=== PATIENT | male | born 1980 | race Caucasian/White ===

== ENCOUNTER 2016-11-06 15:11 | Inpatient (IN) ==
[2016-11-06] MEDS ORDERED: ZOSYN 4.5 GM in NS 100 ML IV ONE (16:42)
[2016-11-06] MEDS ORDERED: VANCOMYCIN 1 GM/NS 1 GM/250 ML IVPB IV ONE ×2 (16:42→19:00)
[2016-11-06 17:06] LABS: MANUAL DIFF NEEDED? NO
[2016-11-06 17:16] LABS: BASO% 0.2 % (0.0-0.8); EOS# 0.09 X1000 (0.0-0.7); EOS% 0.8 % (0.0-10.0); IMM GRAN# 0.03 X1000 (0.0-0.04); IMM GRAN% 0.3 % (0.0-0.5); LYMPH# 2.21 X1000 (1.2-3.4); LYMPH% 20.1 % (20.5-51.1); MCH 30.4 PG (27-31); MCHC 34.2 g/dL (33-37); MCV 88.8 FL (81-99); MONO# 1.12 X1000 (0.11-0.59); MONO% 10.2 % (1.7-9.3); MPV 10.8 FL (7.4-10.4); NEUT% 68.4 % (42.2-75.2); PLT 309 X1000 (130-400); RBC 4.28 XMIL (4.7-6.1)
[2016-11-06 17:22] LABS: INR 0.98; PROTIME 10.3 Seconds (9.2-11.7); PTT 37.1 Seconds (22.0-36.0)
[2016-11-06 17:31] LABS: AGAP 14; ALBUMIN 4.3 g/dL (3.5-5.0); ALKALINE PHOSPHATASE 98 U/L (32-122); BUN 11 mg/dL (8-22); CALCIUM 9.7 mg/dL (8.8-10.2); CHLORIDE 98 mmol/L (98-107); COSMO 269; GOT 23 U/L (10-34); GPT 37 U/L (10-44); MAGNESIUM 2.1 mg/dL (1.5-2.7); POTASSIUM 3.5 mmol/L (3.5-5.1); SODIUM 136 mmol/L (136-145); TCO2 24 mmol/L (25-35); TOTAL BILIRUBIN 0.73 mg/dL (0.20-1.00); TOTAL PROTEIN 8.2 g/dL (6.3-8.3)
[2016-11-06 17:33] LABS: CK PROFILE 206 U/L (24-204)
[2016-11-06 17:50] LABS: CK INDEX 0.9 (0.0-2.5); CK-MB 1.79 ng/mL (0.0-5.0)
[2016-11-06 17:57] LABS: URINE CULTURE NEEDED? NO; URINE MICRO REVIEW NEEDED? NO; URINE SOURCE CLEAN CATCH
[2016-11-06 18:13] LABS: BILIRUBIN URINE NEGATIVE (NEGATIVE); BLOOD URINE NEGATIVE (NEGATIVE); COLOR YELLOW; GLUCOSE URINE NEGATIVE (NEGATIVE); LEUKOCYTES URINE NEGATIVE (NEGATIVE); NITRITE URINE NEGATIVE (NEGATIVE); PH URINE 6.5; PROTEIN URINE NEGATIVE (NEGATIVE); SP GRAVITY URINE 1.016; TURBIDITY URINE CLEAR (CLEAR); UROBILINOGEN URINE NORMAL (NORMAL)
[2016-11-06 18:15] LABS: UR EPITHELIAL CELLS <10 /HPF (<10); URINE BACTERIA NEGATIVE /HPF; URINE RBC <10 /HPF (<10); URINE WBC <10 /HPF (<10)
[2016-11-06] MEDS ORDERED: VANCOMYCIN IV PER PHARMACY MISC SCH (18:15)
[2016-11-06 18:21] LABS: UR AMPHETAMINES QUAL NONE DETECTED (NONE DETECT); UR BARBITUATES QUAL NONE DETECTED (NONE DETECT); UR BENZODIAZEPIN QUAL NONE DETECTED (NONE DETECT); UR CANNABINOIDS QUAL NONE DETECTED (NONE DETECT); UR COCAINE QUAL NONE DETECTED (NONE DETECT); UR METHADONE QUAL NONE DETECTED (NONE DETECT); UR OPIATES QUAL NONE DETECTED (NONE DETECT); UR OXYCODONE QUAL NONE DETECTED (NONE DETECT); UR PCP QUAL NONE DETECTED (NONE DETECT)
[2016-11-06] MEDS ORDERED: NS 1,000 ML IV ONE (22:01)
[2016-11-06] MEDS ORDERED: ZOFRAN IV PRN (22:01)
[2016-11-06] MEDS ORDERED: TYLENOL PO PRN (22:01)
[2016-11-06] MEDS: ROBITUSSIN-AC PO PRN (22:27)
[2016-11-06] MEDS: ZOSYN 3.375 GM in NS 50 ML IV SCH (22:29)
[2016-11-07] MEDS: ROBITUSSIN-AC PO PRN ×5 (03:13→23:31)
[2016-11-07] MEDS: ZOSYN 3.375 GM in NS 50 ML IV SCH ×7 (05:29→23:23)
[2016-11-07] MEDS: PRILOSEC PO SCH (06:00)
[2016-11-07 07:18] LABS: HEMATOCRIT 35.1 % (42.0-52.0); HEMOGLOBIN 11.9 g/dL (14.0-18.0); MCH 31.6 PG (27-31); MCHC 33.9 g/dL (33-37); MCV 93.1 FL (81-99); MPV 10.4 FL (7.4-10.4); RBC 3.77 XMIL (4.7-6.1)
[2016-11-07 07:44] LABS: AGAP 13; BUN 8 mg/dL (8-22); CALCIUM 8.4 mg/dL (8.8-10.2); CHLORIDE 102 mmol/L (98-107); COSMO 279; POTASSIUM 4.2 mmol/L (3.5-5.1); SODIUM 141 mmol/L (136-145); TCO2 26 mmol/L (25-35)
[2016-11-07] MEDS ORDERED: VANCOMYCIN 2,000 MG in NS 500 ML IV SCH (08:00)
[2016-11-07] MEDS: VANCOMYCIN 2 GM in NS 500 ML IV SCH ×2 (09:16→21:50)
[2016-11-08] MEDS: ZOSYN 3.375 GM in NS 50 ML IV SCH ×2 (04:10→15:08)
[2016-11-08] MEDS: ROBITUSSIN-AC PO PRN ×3 (04:14→12:27)
[2016-11-08] MEDS: PRILOSEC PO SCH (06:41)
[2016-11-08 07:01] LABS: MANUAL DIFF NEEDED? NO
[2016-11-08 07:08] LABS: BASO% 0.2 % (0.0-0.8); EOS# 0.14 X1000 (0.0-0.7); EOS% 1.7 % (0.0-10.0); HEMATOCRIT 35.6 % (42.0-52.0); HEMOGLOBIN 11.9 g/dL (14.0-18.0); IMM GRAN# 0.02 X1000 (0.0-0.04); IMM GRAN% 0.2 % (0.0-0.5); LYMPH# 1.54 X1000 (1.2-3.4); MCH 30.5 PG (27-31); MCHC 33.4 g/dL (33-37); MCV 91.3 FL (81-99); MONO# 0.75 X1000 (0.11-0.59); MONO% 9.2 % (1.7-9.3); MPV 10.2 FL (7.4-10.4); NEUT% 69.7 % (42.2-75.2); PLT 255 X1000 (130-400)
[2016-11-08 07:34] LABS: AGAP 12; BUN 8 mg/dL (8-22); CALCIUM 8.6 mg/dL (8.8-10.2); CHLORIDE 99 mmol/L (98-107); COSMO 273; POTASSIUM 3.8 mmol/L (3.5-5.1); SODIUM 137 mmol/L (136-145); TCO2 26 mmol/L (25-35)
[2016-11-08 08:31] VITALS: BP 117/70
[2016-11-08] MEDS: VANCOMYCIN 2 GM in NS 500 ML IV SCH (12:03)
[2016-11-08] MEDS ORDERED: DOXYCYCLINE PO SCH (21:00)
== END 2016-11-08 15:29 | disposition home or self-care (01) ==
LOC: ED 15:11 → SUATTDRO 20:56 → 3N 20:56
PROVIDERS: ATTEND Internal Medicine